=== PATIENT | male | born 1935 | race Caucasian/White ===

== ENCOUNTER 2016-12-19 19:54 | Inpatient (IN) | payer MEDICARE, MEDICAID ==
[~2016-12-19] VITALS: Ht 177.8 cm; Wt 58.0 kg
[2016-12-19 20:11] LABS: GLUCOSE,POINT OF CARE 133 MG/DL (70-110)
[2016-12-19 21:29] LABS: BASOPHILS % (AUTO) 0.5 % (0.0-2.0); EOSINOPHILS % (AUTO) 5.9 % (1.0-6.0); HEMOGLOBIN 7.5 g/dL (13.5-17.5); LYMPHOCYTES # (AUTO) 2.5 K/uL (1.0-4.8); LYMPHOCYTES % (AUTO) 34.4 % (22.0-44.0); MEAN CORPUSCULAR HEMOGLOBIN 30.5 pg (26.0-34.0); MEAN CORPUSCULAR HGB CONC 32.4 G/dL (31.0-37.0); MEAN CORPUSCULAR VOLUME 94 fL (80-100); MONOCYTES # (AUTO) 0.8 K/uL (0.1-1.0); MONOCYTES % (AUTO) 11.1 % (2.0-9.0); NEUTROPHILS # (AUTO) 3.4 K/uL (1.8-7.7); NEUTROPHILS % (AUTO) 48.1 % (40.0-70.0); PLATELET COUNT (AUTO) 301 K/uL (150-450); RED BLOOD CELL COUNT(AUTO) 2.45 MIL/uL (4.50-5.90); RED CELL DISTRIBUTION WIDTH 21.4 % (11.5-14.5); WHITE BLOOD COUNT (AUTO) 7.1 K/uL (4.5-11.0)
[2016-12-19 21:37] LABS: ANION GAP 3 mmol/L (8-16); CALCIUM, TOTAL 8.3 mg/dL (8.8-10.5); CARBON DIOXIDE 31 mmol/L (22-29); CHLORIDE 100 mmol/L (98-107); CREATININE 0.94 mg/dL (0.60-1.30); GLOMERULAR FILTR. RATE CALC > 60 mL/min (>60); POTASSIUM 4.4 mmol/L (3.5-5.1); SODIUM SERUM 134 mmol/L (136-145); UREA NITROGEN, BLOOD 27 mg/dL (7-18)
[2016-12-19 21:43] LABS: ALANINE AMINOTRANSFERASE 14 U/L (12-78); ALBUMIN 1.9 g/dL (3.4-5.0); ASPARTATE AMINOTRANSFERASE 18 U/L (15-37); BILIRUBIN,TOTAL 0.2 mg/dL (0.1-1.0); TOTAL PROTEIN, SERUM 6.8 g/dL (6.4-8.2)
[2016-12-19] MEDS ORDERED: HYDR-3965 GT (21:55)
[2016-12-19] MEDS ORDERED: ACET-2247 GT ×2 (21:55)
[2016-12-19] MEDS ORDERED: LACT1CAP62 GT (21:55)
[2016-12-19] MEDS ORDERED: GABA-531 GT (21:55)
[2016-12-19] MEDS ORDERED: SIMV-259 GT (21:55)
[2016-12-19] MEDS ORDERED: COLL30OI TP (21:55)
[2016-12-19] MEDS ORDERED: FOLI1 GT (21:55)
[2016-12-19] MEDS ORDERED: ASPI81 PO (21:55)
[2016-12-19] MEDS ORDERED: INSNOV SQ (21:55)
[2016-12-19] MEDS ORDERED: FURO20 GT (21:55)
[2016-12-19] MEDS ORDERED: NAPH1PAC2 GT (21:55)
[2016-12-19] MEDS ORDERED: ATEN25 GT (21:55)
[2016-12-19] MEDS ORDERED: PYRI100T2 GT (21:55)
[2016-12-19] MEDS ORDERED: LISI-662 GT (21:55)
[2016-12-19] MEDS ORDERED: FERR-6 GT (21:55)
[2016-12-19 22:32] LABS: RBC MORPHOLOGY COMMENT ABNORMAL RBC MORPH
[2016-12-19 22:40] LABS: ADD UA MICROSCOPIC NO; APPEARANCE,URINE CLEAR (CLEAR); GLUCOSE, URINE (UA) NEGATIVE (NEGATIVE); KETONES,URINE NEGATIVE (NEGATIVE); LEUKOCYTE ESTERASE ,URINE NEGATIVE (NEGATIVE); OCCULT BLOOD,URINE NEGATIVE (NEGATIVE); PH,URINE 7.5 (5.0-8.0); PROTEIN,URINE POS 1+ (NEGATIVE)
[2016-12-20] VITALS (25 sets, daily range): BP systolic 115–162; BP diastolic 47–76
[2016-12-20] MEDS ORDERED: SODIUM CHLORIDE 0.9% 250 ML IV ONE (02:22)
[2016-12-20] MEDS ORDERED: PYRIDOXINE HCL 50 MG TABLET GT SCH (05:45)
[2016-12-20] MEDS ORDERED: 0.9% SODIUM CHLORIDE 10 ML SYRINGE IVP PRN (06:00)
[2016-12-20] MEDS ORDERED: ONDANSETRON HCL 4 MG/2 ML VIAL IVP PRN (06:00)
[2016-12-20] MEDS ORDERED: ACETAMINOPHEN 325 MG TABLET GT SCH (09:00)
[2016-12-20] MEDS ORDERED: DOCUSATE SODIUM 100 MG/10 ML LIQUID UDCUP GT SCH (09:00)
[2016-12-20] MEDS: LACTOBACILLUS ACIDOPHILUS/BULGARICUS GRANULES PACKET GT SCH ×3 (10:32→20:31)
[2016-12-20] MEDS: FOLIC ACID 1 MG TABLET GT SCH (10:33)
[2016-12-20] MEDS: ATENOLOL 25 MG TABLET GT SCH ×2 (10:33→20:31)
[2016-12-20] MEDS: ASPIRIN 81 MG CHEWABLE TABLET GT SCH (10:33)
[2016-12-20] MEDS: LISINOPRIL 20 MG TABLET GT SCH (10:33)
[2016-12-20] MEDS: PANTOPRAZOLE SODIUM 40 MG/VIAL IVP SCH (10:33)
[2016-12-20] MEDS: GABAPENTIN 300 MG CAPSULE GT SCH (10:33)
[2016-12-20] MEDS: POTASSIUM PHOS/SODIUM PHOS MIXTURE 1 POWDER PACKET GT SCH ×2 (10:34→20:31)
[2016-12-20] MEDS: FERROUS SULFATE 300 MG/5 ML LIQUID UDCUP GT SCH ×2 (10:34→20:31)
[2016-12-20] MEDS: DOCUSATE SODIUM 100 MG CAPSULE GT SCH ×2 (10:34→20:31)
[2016-12-20] MEDS ORDERED: INFLUENZA VIRUS VACCINE QVS 2016-17 (3YR+)/PF 60 MCG/0.5 ML SYRINGE IM ONE (12:15)
[2016-12-20] MEDS ORDERED: SODIUM CHLORIDE 0.9% 500 ML IV ONE (13:36)
[2016-12-20 19:02] LABS: HEMATOCRIT 29.7 % (41-53); HEMOGLOBIN 9.7 g/dL (13.5-17.5)
[2016-12-20] MEDS ORDERED: SIMVASTATIN 10 MG TABLET GT SCH (21:00)
[2016-12-21 03:30] VITALS: BP 122/64
[2016-12-21 07:11] LABS: ANION GAP 8 mmol/L (8-16); CALCIUM, TOTAL 8.4 mg/dL (8.8-10.5); CARBON DIOXIDE 26 mmol/L (22-29); CHLORIDE 104 mmol/L (98-107); CREATININE 0.96 mg/dL (0.60-1.30); GLOMERULAR FILTR. RATE CALC > 60 mL/min (>60); POTASSIUM 4.2 mmol/L (3.5-5.1); SODIUM SERUM 138 mmol/L (136-145); UREA NITROGEN, BLOOD 25 mg/dL (7-18)
[2016-12-21 07:29] VITALS: BP 135/66
[2016-12-21 07:40] LABS: BASOPHILS # (AUTO) 0.04 K/uL (0.00-0.20); BASOPHILS % (AUTO) 0.7 % (0.0-2.0); EOSINOPHILS # (AUTO) 0.32 K/uL (0.00-0.70); EOSINOPHILS % (AUTO) 5.25 % (1.0-6.0); HEMATOCRIT 28.7 % (41-53); HEMOGLOBIN 9.8 g/dL (13.5-17.5); LYMPHOCYTES # (AUTO) 3.1 K/uL (1.0-4.8); LYMPHOCYTES % (AUTO) 50.3 % (22.0-44.0); MEAN CORPUSCULAR HEMOGLOBIN 30.6 pg (26.0-34.0); MEAN CORPUSCULAR VOLUME 90 fL (80-100); MONOCYTES # (AUTO) 0.8 K/uL (0.1-1.0); MONOCYTES % (AUTO) 12.4 % (2.0-9.0); NEUTROPHILS # (AUTO) 1.9 K/uL (1.8-7.7); NEUTROPHILS % (AUTO) 31.3 % (40.0-70.0); PLATELET COUNT (AUTO) 227 K/uL (150-450); RED CELL DISTRIBUTION WIDTH 21.5 % (11.5-14.5); WHITE BLOOD COUNT (AUTO) 6.1 K/uL (4.5-11.0)
[2016-12-21 07:42] LABS: RBC MORPHOLOGY COMMENT ABNORMAL RBC MORPH
[2016-12-21] MEDS: PANTOPRAZOLE SODIUM 40 MG/VIAL IVP SCH (08:06)
[2016-12-21] MEDS: POTASSIUM PHOS/SODIUM PHOS MIXTURE 1 POWDER PACKET GT SCH (08:07)
[2016-12-21] MEDS: FOLIC ACID 1 MG TABLET GT SCH (08:07)
[2016-12-21] MEDS: LACTOBACILLUS ACIDOPHILUS/BULGARICUS GRANULES PACKET GT SCH ×2 (08:07→16:24)
[2016-12-21] MEDS: FERROUS SULFATE 300 MG/5 ML LIQUID UDCUP GT SCH (08:07)
[2016-12-21] MEDS: ATENOLOL 25 MG TABLET GT SCH (08:07)
[2016-12-21] MEDS: ASPIRIN 81 MG CHEWABLE TABLET GT SCH (08:07)
[2016-12-21] MEDS: LISINOPRIL 20 MG TABLET GT SCH (08:07)
[2016-12-21] MEDS: GABAPENTIN 300 MG CAPSULE GT SCH (08:07)
[2016-12-21] MEDS: DOCUSATE SODIUM 100 MG CAPSULE GT SCH (08:07)
[2016-12-21] MEDS ORDERED: MULTIVITAMINS WITH MINERALS, THERAPEUTIC 15 ML UDCUP GT SCH (09:00)
[2016-12-21 11:10] VITALS: BP 146/74
[2016-12-21 16:02] VITALS: BP 159/55
[2016-12-22] MEDS ORDERED: ACETAMINOPHEN 650 MG/20.3 ML SOLUTION UDCUP GT PRN (08:00)
== END 2016-12-21 19:20 | DRG 811 ==
LOC: EMS 19:59 → 6N 12-20 01:06
PROVIDERS: ADMIT Internal Medicine; ATTEND Internal Medicine
PROC: 30233N1 Transfusion of Nonautologous Red Blood Cells into Peripheral Vein, Percutaneous Approach (ICD-10-PCS; principal; 2016-12-20)
PROC: 3E0234Z Introduction of Serum, Toxoid and Vaccine into Muscle, Percutaneous Approach (ICD-10-PCS; 2016-12-20)
DX: D64.9 Anemia, unspecified (principal); E43 Unspecified severe protein-calorie malnutrition; L89.153 Pressure ulcer of sacral region, stage 3; Z68.1 Body mass index [BMI] 19.9 or less, adult; E11.9 Type 2 diabetes mellitus without complications; E86.0 Dehydration; I10 Essential (primary) hypertension; E78.00 Pure hypercholesterolemia, unspecified; F03.90 Unspecified dementia, unspecified severity, without behavioral disturbance, psychotic disturbance, mood disturbance, and anxiety; I25.10 Atherosclerotic heart disease of native coronary artery without angina pectoris; H54.41 Blindness, right eye, normal vision left eye; Z93.1 Gastrostomy status; Z95.1 Presence of aortocoronary bypass graft; Z98.890 Other specified postprocedural states; Z79.899 Other long term (current) drug therapy; Z23 Encounter for immunization
CPT/HCPCS: 82962; 85014; 85018; 86850; 86900; 86901; 86920; 87081; 90471; 93005; 99285; C9113; J7040; J7050; P9016

== ENCOUNTER 2017-02-24 13:24 | Inpatient (IN) | payer MEDICARE, MEDICAID ==
[~2017-02-24] VITALS: Ht 167.6 cm; Wt 68.9 kg
[~2017-02-24 13:24] MED LIST: ACET-2247 GT; ASPI81 PO; ATEN25 GT; COLL30OI TP; FERR-6 GT; FOLI1 GT; FURO20 GT; GABA-531 GT; HYDR-3965 GT; INSNOV SQ; LACT1CAP62 GT; LISI-662 GT; NAPH1PAC2 GT; PYRI100T2 GT; SIMV-259 GT
[2017-02-24 14:45] LABS: HEMOGLOBIN 10.6 g/dL (13.5-17.5); MEAN CORPUSCULAR HEMOGLOBIN 29.4 pg (26.0-34.0); MEAN CORPUSCULAR HGB CONC 32.2 G/dL (31.0-37.0); MEAN CORPUSCULAR VOLUME 91 fL (80-100); PLATELET COUNT (AUTO) 259 K/uL (150-450); RED BLOOD CELL COUNT(AUTO) 3.61 MIL/uL (4.50-5.90); RED CELL DISTRIBUTION WIDTH 16.1 % (11.5-14.5); WHITE BLOOD COUNT (AUTO) 15.6 K/uL (4.5-11.0)
[2017-02-24] MEDS ORDERED: SODIUM CHLORIDE 0.9% 1,000 ML IV ONE (14:45)
[2017-02-24 15:07] LABS: B-TYPE NATRIURETIC PEPTIDE 1430 pg/mL (0-100)
[2017-02-24 15:14] LABS: BAND NEUTROPHILS % (MANUAL) 12 % (1-5); EOSINOPHILS % (MANUAL) 2 % (1-6); LYMPHOCYTES % (MANUAL) 4 % (22-44); TOTAL CELLS COUNTED 100
[2017-02-24 15:16] LABS: ALANINE AMINOTRANSFERASE 17 U/L (12-78); ANION GAP 10 mmol/L (8-16); ASPARTATE AMINOTRANSFERASE 18 U/L (15-37); BILIRUBIN,TOTAL 0.5 mg/dL (0.1-1.0); CALCIUM, TOTAL 8.9 mg/dL (8.8-10.5); CARBON DIOXIDE 26 mmol/L (22-29); CHLORIDE 91 mmol/L (98-107); CREATININE 3.62 mg/dL (0.60-1.30); GLOMERULAR FILTR. RATE CALC 16 mL/min (>60); SODIUM SERUM 127 mmol/L (136-145); TOTAL PROTEIN, SERUM 8.4 g/dL (6.4-8.2); UREA NITROGEN, BLOOD 94 mg/dL (7-18)
[2017-02-24 15:19] LABS: LACTIC ACID 3.5 mmol/L (0.4-2.0); POTASSIUM 7.2 mmol/L (3.5-5.1)
[2017-02-24] MEDS ORDERED: CALCIUM GLUCONATE 100 MG/ML 10 ML IVP ONE (15:45)
[2017-02-24] MEDS ORDERED: INSULIN REGULAR, HUMAN 100 UNITS/ML IVP ONE (15:45)
[2017-02-24] MEDS ORDERED: DEXTROSE 50%-WATER 25 GM/50 ML SYRINGE IVP ONE (15:45)
[2017-02-24] MEDS ORDERED: AZITHROMYCIN 500 MG/NS 250 ML IV ONE (15:45)
[2017-02-24] MEDS ORDERED: CefTRIAXone 1 GM/DEXTROSE 50 ML IV ONE (15:45)
[2017-02-24 16:41] LABS: REFLEX LACTIC ACID? YES YES
[2017-02-24] MEDS ORDERED: PANTOPRAZOLE SODIUM 80 MG in SODIUM CHLORIDE 0.9% 500 ML IV SCH (18:00)
[2017-02-24] MEDS ORDERED: PANTOPRAZOLE SODIUM 80 MG in SODIUM CHLORIDE 0.9% 50 ML IV ONE (18:00)
[2017-02-24 20:09] VITALS: BP 109/49
[2017-02-24] MEDS ORDERED: ACETAMINOPHEN 650 MG/20.3 ML SOLUTION UDCUP GT PRN (23:15)
[2017-02-24] MEDS ORDERED: HYDROCODONE/ACETAMINOPHEN 5-325 MG TABLET GT PRN ×2 (23:15→23:55)
[2017-02-24 23:44] VITALS: BP 139/57
[2017-02-24] MEDS ORDERED: SODIUM POLYSTYRENE SULFONATE 15 GM/60 ML SUSPENSION BOTTLE PEG ONE (23:45)
[2017-02-24] MEDS ORDERED: MORPHINE SULFATE 2 MG/ML SYRINGE IVP PRN (23:45)
[2017-02-24] MEDS ORDERED: DEXTROSE 50%-WATER 25 GM/50 ML SYRINGE IVP PRN (23:45)
[2017-02-24] MEDS ORDERED: BISACODYL 10 MG RECTAL RECTAL SUPPOSITORY PR PRN (23:45)
[2017-02-24] MEDS ORDERED: ALBUTEROL SULFATE 2.5 MG/0.5 ML NEB SOLUTION NEB PRN (23:45)
[2017-02-24] MEDS ORDERED: IPRATROPIUM BROMIDE 0.5 MG/2.5 ML NEB SOLUTION NEB PRN (23:45)
[2017-02-24] MEDS ORDERED: CefTRIAXone 1 GM/DEXTROSE 50 ML IV SCH (23:45)
[2017-02-24] MEDS ORDERED: MAGNESIUM HYDROXIDE SUSPENSION 30 ML UDCUP PO PRN (23:45)
[2017-02-24] MEDS ORDERED: ONDANSETRON HCL 4 MG/2 ML VIAL IVP PRN (23:45)
[2017-02-24] MEDS ORDERED: HYDROCODONE/ACETAMINOPHEN 5-325 MG TABLET PO PRN (23:45)
[2017-02-24] MEDS ORDERED: ACETAMINOPHEN 325 MG TABLET PO PRN (23:45)
[2017-02-24] MEDS ORDERED: ZOLPIDEM TARTRATE 5 MG TABLET PO PRN (23:45)
[2017-02-24] MEDS ORDERED: ZOLPIDEM TARTRATE 5 MG TABLET GT PRN (23:55)
[2017-02-25] MEDS ORDERED: MAGNESIUM HYDROXIDE SUSPENSION 30 ML UDCUP GT PRN
[2017-02-25 00:16] LABS: HEMATOCRIT 27.1 % (41-53); HEMOGLOBIN 8.7 g/dL (13.5-17.5); MEAN CORPUSCULAR HEMOGLOBIN 29.1 pg (26.0-34.0); MEAN CORPUSCULAR HGB CONC 32.1 G/dL (31.0-37.0); MEAN CORPUSCULAR VOLUME 91 fL (80-100); PLATELET COUNT (AUTO) 288 K/uL (150-450); RED BLOOD CELL COUNT(AUTO) 2.99 MIL/uL (4.50-5.90); RED CELL DISTRIBUTION WIDTH 16.2 % (11.5-14.5); WHITE BLOOD COUNT (AUTO) 16.7 K/uL (4.5-11.0)
[2017-02-25 00:28] LABS: ALBUMIN 1.9 g/dL (3.4-5.0); BILIRUBIN,TOTAL 0.3 mg/dL (0.1-1.0); CALCIUM, TOTAL 8.9 mg/dL (8.8-10.5); CREATININE 3.93 mg/dL (0.60-1.30)
[2017-02-25 00:48] LABS: BAND NEUTROPHILS % (MANUAL) 53 % (1-5); LYMPHOCYTES % (MANUAL) 6 % (22-44); TOTAL CELLS COUNTED 100
[2017-02-25 04:37] VITALS: BP 122/55
[2017-02-25 06:53] LABS: EOSINOPHILS % (AUTO) 0.1 % (1.0-6.0); HEMATOCRIT 23.6 % (41-53); HEMOGLOBIN 7.7 g/dL (13.5-17.5); LYMPHOCYTES # (AUTO) 0.8 K/uL (1.0-4.8); LYMPHOCYTES % (AUTO) 5.4 % (22.0-44.0); MEAN CORPUSCULAR HEMOGLOBIN 29.8 pg (26.0-34.0); MEAN CORPUSCULAR HGB CONC 32.7 G/dL (31.0-37.0); MEAN CORPUSCULAR VOLUME 91 fL (80-100); MONOCYTES # (AUTO) 0.5 K/uL (0.1-1.0); MONOCYTES % (AUTO) 3.3 % (2.0-9.0); NEUTROPHILS # (AUTO) 12.8 K/uL (1.8-7.7); PLATELET COUNT (AUTO) 285 K/uL (150-450); RED CELL DISTRIBUTION WIDTH 16.1 % (11.5-14.5); WHITE BLOOD COUNT (AUTO) 14.1 K/uL (4.5-11.0)
[2017-02-25 07:08] LABS: GLUCOSE COMMENT 1 Received Meds; GLUCOSE,POINT OF CARE 177 MG/DL (70-110)
[2017-02-25 07:10] LABS: NEUTROPHILS % (AUTO) 91.2 % (40.0-70.0)
[2017-02-25 07:13] VITALS: BP 110/64
[2017-02-25 07:25] LABS: ALBUMIN 1.7 g/dL (3.4-5.0); BILIRUBIN,TOTAL 0.3 mg/dL (0.1-1.0); CALCIUM, TOTAL 8.7 mg/dL (8.8-10.5); CREATININE 4.53 mg/dL (0.60-1.30); POTASSIUM 5.8 mmol/L (3.5-5.1); TOTAL PROTEIN, SERUM 7.4 g/dL (6.4-8.2)
[2017-02-25] MEDS: PANTOPRAZOLE SODIUM 40 MG/VIAL IVP SCH (08:02)
[2017-02-25] MEDS ORDERED: FUROSEMIDE 20 MG TABLET GT SCH (09:00)
[2017-02-25] MEDS: DOCUSATE SODIUM 100 MG CAPSULE GT SCH ×2 (09:00→21:16)
[2017-02-25] MEDS ORDERED: LISINOPRIL 20 MG TABLET GT SCH (09:00)
[2017-02-25] MEDS: FERROUS SULFATE 300 MG/5 ML LIQUID UDCUP GT SCH ×2 (09:00→21:16)
[2017-02-25] MEDS ORDERED: POTASSIUM PHOS/SODIUM PHOS MIXTURE 1 POWDER PACKET GT SCH (09:00)
[2017-02-25] MEDS: GABAPENTIN 300 MG CAPSULE GT SCH (10:01)
[2017-02-25] MEDS: PYRIDOXINE HCL 50 MG TABLET GT SCH (10:01)
[2017-02-25] MEDS: LACTOBACILLUS ACIDOPHILUS/BULGARICUS TABLET GT SCH ×3 (10:01→21:16)
[2017-02-25] MEDS: FOLIC ACID 1 MG TABLET GT SCH (10:01)
[2017-02-25] MEDS: ATENOLOL 25 MG TABLET GT SCH ×2 (10:02→21:16)
[2017-02-25] MEDS: SODIUM CHLORIDE 0.45% 1,000 ML IV SCH (10:04)
[2017-02-25 11:16] VITALS: BP 120/54
[2017-02-25] MEDS: INSULIN REGULAR, HUMAN 100 UNITS/ML SQ PRN (12:09)
[2017-02-25] MEDS: CefTRIAXone 1 GM/DEXTROSE 50 ML IV SCH (14:30)
[2017-02-25 15:26] LABS: HEMATOCRIT 24.4 % (41-53); HEMOGLOBIN 7.9 g/dL (13.5-17.5); MEAN CORPUSCULAR HEMOGLOBIN 29.5 pg (26.0-34.0); MEAN CORPUSCULAR HGB CONC 32.2 G/dL (31.0-37.0); MEAN CORPUSCULAR VOLUME 91 fL (80-100); PLATELET COUNT (AUTO) 296 K/uL (150-450); RED BLOOD CELL COUNT(AUTO) 2.66 MIL/uL (4.50-5.90); RED CELL DISTRIBUTION WIDTH 16.2 % (11.5-14.5); WHITE BLOOD COUNT (AUTO) 12.1 K/uL (4.5-11.0)
[2017-02-25 15:55] LABS: BAND NEUTROPHILS % (MANUAL) 37 % (1-5); LYMPHOCYTES % (MANUAL) 14 % (22-44); TOTAL CELLS COUNTED 100
[2017-02-25 16:00] LABS: ALBUMIN 1.6 g/dL (3.4-5.0); BILIRUBIN,TOTAL 0.3 mg/dL (0.1-1.0); CALCIUM, TOTAL 8.5 mg/dL (8.8-10.5); CREATININE 4.77 mg/dL (0.60-1.30); MAGNESIUM 2.3 mg/dL (1.80-2.40); PHOSPHORUS 5.9 mg/dL (2.5-4.9); POTASSIUM 4.4 mmol/L (3.5-5.1); TOTAL PROTEIN, SERUM 7.4 g/dL (6.4-8.2)
[2017-02-25 16:22] VITALS: BP 116/54
[2017-02-25 17:23] LABS: GLUCOSE COMMENT 1 Received Meds; GLUCOSE,POINT OF CARE 200 MG/DL (70-110)
[2017-02-25 17:23] LABS: GLUCOSE,POINT OF CARE 150 MG/DL (70-110)
[2017-02-25 18:12] LABS: GLUCOSE,POINT OF CARE 133 MG/DL (70-110)
[2017-02-25 20:04] VITALS: BP 133/64
[2017-02-25] MEDS: SIMVASTATIN 10 MG TABLET GT SCH (21:16)
[2017-02-25 23:49] VITALS: BP 126/62
[2017-02-26] MEDS: SODIUM CHLORIDE 0.45% 1,000 ML IV SCH ×2 (01:05→18:30)
[2017-02-26] MEDS ORDERED: PROPOFOL 1% 20 ML VIAL IVP ONE (04:11)
[2017-02-26 04:14] VITALS: BP 132/60
[2017-02-26 07:35] LABS: EOSINOPHILS % (AUTO) 0 % (1.0-6.0); HEMATOCRIT 23.5 % (41-53); HEMOGLOBIN 7.7 g/dL (13.5-17.5); LYMPHOCYTES # (AUTO) 0.9 K/uL (1.0-4.8); LYMPHOCYTES % (AUTO) 8.3 % (22.0-44.0); MEAN CORPUSCULAR HEMOGLOBIN 29.8 pg (26.0-34.0); MEAN CORPUSCULAR HGB CONC 32.9 G/dL (31.0-37.0); MEAN CORPUSCULAR VOLUME 91 fL (80-100); MONOCYTES # (AUTO) 0.2 K/uL (0.1-1.0); MONOCYTES % (AUTO) 1.4 % (2.0-9.0); PLATELET COUNT (AUTO) 286 K/uL (150-450); RED BLOOD CELL COUNT(AUTO) 2.59 MIL/uL (4.50-5.90); RED CELL DISTRIBUTION WIDTH 16.5 % (11.5-14.5); WHITE BLOOD COUNT (AUTO) 11.1 K/uL (4.5-11.0)
[2017-02-26 07:38] VITALS: BP 115/54
[2017-02-26 07:59] LABS: ALBUMIN 1.5 g/dL (3.4-5.0); BILIRUBIN,TOTAL 0.3 mg/dL (0.1-1.0); CALCIUM, TOTAL 8.4 mg/dL (8.8-10.5); CREATININE 4.37 mg/dL (0.60-1.30); MAGNESIUM 2.3 mg/dL (1.80-2.40); NEUTROPHILS % (AUTO) 90.3 % (40.0-70.0); PHOSPHORUS 5.8 mg/dL (2.5-4.9); POTASSIUM 3.6 mmol/L (3.5-5.1); TOTAL PROTEIN, SERUM 6.8 g/dL (6.4-8.2)
[2017-02-26] MEDS: FERROUS SULFATE 300 MG/5 ML LIQUID UDCUP GT SCH ×2 (09:00→21:40)
[2017-02-26] MEDS: LACTOBACILLUS ACIDOPHILUS/BULGARICUS TABLET GT SCH ×3 (09:00→21:40)
[2017-02-26] MEDS: ATENOLOL 25 MG TABLET GT SCH ×2 (09:00→21:40)
[2017-02-26] MEDS: DOCUSATE SODIUM 100 MG CAPSULE GT SCH ×2 (09:00→21:00)
[2017-02-26] MEDS: PYRIDOXINE HCL 50 MG TABLET GT SCH (09:00)
[2017-02-26] MEDS: FOLIC ACID 1 MG TABLET GT SCH (09:00)
[2017-02-26] MEDS: GABAPENTIN 300 MG CAPSULE GT SCH (09:00)
[2017-02-26 11:25] VITALS: BP 133/70
[2017-02-26] MEDS ORDERED: SODIUM CHLORIDE 0.9% 1,000 ML IV ONE ×2 (13:15→13:27)
[2017-02-26 16:46] VITALS: BP 125/60
[2017-02-26] MEDS: PANTOPRAZOLE SODIUM 40 MG/VIAL IVP SCH (18:01)
[2017-02-26] MEDS: EPOETIN ALFA 10,000 UNITS/ML VIAL SQ SCH (18:02)
[2017-02-26] MEDS: CefTRIAXone 1 GM/DEXTROSE 50 ML IV SCH (18:03)
[2017-02-26 19:11] VITALS: BP 131/57
[2017-02-26] MEDS: SOD FERRIC GLUC COMPLX/SUCROSE 125 MG in SODIUM CHLORIDE 0.9% 100 ML IV SCH (19:13)
[2017-02-26 21:10] LABS: APPEARANCE,URINE CLOUDY (CLEAR); GLUCOSE, URINE (UA) NEGATIVE (NEGATIVE); KETONES,URINE TRACE mg/dL (NEGATIVE); LEUKOCYTE ESTERASE ,URINE LARGE (NEGATIVE); OCCULT BLOOD,URINE LARGE (NEGATIVE); PROTEIN,URINE SEE CONFIRM (NEGATIVE)
[2017-02-26 21:32] LABS: SULFOSALICYLIC ACID,URINE 3+ (Negative)
[2017-02-26 21:33] LABS: SQUAMOUS EPITHELIAL CELL,UR Rare /LPF (None Seen)
[2017-02-26 21:34] LABS: RBC,URINE >100 /HPF (0-2)
[2017-02-26] MEDS: SIMVASTATIN 10 MG TABLET GT SCH (21:40)
[2017-02-26] MEDS: MUPIROCIN CALCIUM 2% 22 GM OINTMENT NASAL SCH (21:40)
[2017-02-27] VITALS (7 sets, daily range): BP systolic 124–161; BP diastolic 60–88
[2017-02-27 00:22] LABS: GLUCOSE,POINT OF CARE 91 MG/DL (70-110)
[2017-02-27] MEDS: SODIUM CHLORIDE 0.45% 1,000 ML IV SCH ×2 (01:49→16:42)
[2017-02-27 04:27] LABS: BASOPHILS % (AUTO) 0.1 % (0.0-2.0); EOSINOPHILS % (AUTO) 0.1 % (1.0-6.0); HEMATOCRIT 26.7 % (41-53); HEMOGLOBIN 8.7 g/dL (13.5-17.5); LYMPHOCYTES # (AUTO) 1.2 K/uL (1.0-4.8); LYMPHOCYTES % (AUTO) 9.7 % (22.0-44.0); MEAN CORPUSCULAR HEMOGLOBIN 28.9 pg (26.0-34.0); MEAN CORPUSCULAR HGB CONC 32.4 G/dL (31.0-37.0); MEAN CORPUSCULAR VOLUME 89 fL (80-100); MONOCYTES # (AUTO) 0.6 K/uL (0.1-1.0); MONOCYTES % (AUTO) 4.8 % (2.0-9.0); NEUTROPHILS # (AUTO) 10.5 K/uL (1.8-7.7); PLATELET COUNT (AUTO) 286 K/uL (150-450); RED CELL DISTRIBUTION WIDTH 16.6 % (11.5-14.5); WHITE BLOOD COUNT (AUTO) 12.3 K/uL (4.5-11.0)
[2017-02-27 04:29] LABS: NEUTROPHILS % (AUTO) 85.3 % (40.0-70.0)
[2017-02-27 04:39] LABS: ALBUMIN 1.5 g/dL (3.4-5.0); BILIRUBIN,TOTAL 0.3 mg/dL (0.1-1.0); CALCIUM, TOTAL 8.2 mg/dL (8.8-10.5); CREATININE 3.87 mg/dL (0.60-1.30); MAGNESIUM 2.2 mg/dL (1.80-2.40); PHOSPHORUS 4.6 mg/dL (2.5-4.9); POTASSIUM 3.3 mmol/L (3.5-5.1); TOTAL PROTEIN, SERUM 6.7 g/dL (6.4-8.2)
[2017-02-27 06:57] LABS: GLUCOSE,POINT OF CARE 104 MG/DL (70-110)
[2017-02-27] MEDS ORDERED: POTASSIUM CHLORIDE 10 MEQ ER TABLET PO ONE (07:45)
[2017-02-27] MEDS: DOCUSATE SODIUM 100 MG CAPSULE GT SCH ×2 (09:00→21:00)
[2017-02-27] MEDS: PANTOPRAZOLE SODIUM 40 MG/VIAL IVP SCH (10:01)
[2017-02-27] MEDS: FOLIC ACID 1 MG TABLET GT SCH (10:02)
[2017-02-27] MEDS: PYRIDOXINE HCL 50 MG TABLET GT SCH (10:02)
[2017-02-27] MEDS: GABAPENTIN 300 MG CAPSULE GT SCH (10:02)
[2017-02-27] MEDS: ATENOLOL 25 MG TABLET GT SCH (10:02)
[2017-02-27] MEDS: LACTOBACILLUS ACIDOPHILUS/BULGARICUS TABLET GT SCH ×2 (10:03→16:41)
[2017-02-27] MEDS: MUPIROCIN CALCIUM 2% 22 GM OINTMENT NASAL SCH (10:03)
[2017-02-27] MEDS: FERROUS SULFATE 300 MG/5 ML LIQUID UDCUP GT SCH (10:04)
[2017-02-27] MEDS: CefTRIAXone 1 GM/DEXTROSE 50 ML IV SCH (16:41)
[2017-02-27] MEDS: SOD FERRIC GLUC COMPLX/SUCROSE 125 MG in SODIUM CHLORIDE 0.9% 100 ML IV SCH (17:24)
[2017-02-28] VITALS (7 sets, daily range): BP systolic 133–164; BP diastolic 59–69
[2017-02-28] MEDS: FERROUS SULFATE 300 MG/5 ML LIQUID UDCUP GT SCH ×3 (00:13→20:16)
[2017-02-28] MEDS: SIMVASTATIN 10 MG TABLET GT SCH ×2 (00:13→20:16)
[2017-02-28] MEDS: ATENOLOL 25 MG TABLET GT SCH ×3 (00:13→20:16)
[2017-02-28] MEDS: LACTOBACILLUS ACIDOPHILUS/BULGARICUS TABLET GT SCH ×4 (00:13→20:16)
[2017-02-28] MEDS: MUPIROCIN CALCIUM 2% 22 GM OINTMENT NASAL SCH ×3 (00:13→20:17)
[2017-02-28] MEDS: SODIUM CHLORIDE 0.45% 1,000 ML IV SCH ×2 (04:38→11:46)
[2017-02-28 06:07] LABS: GLUCOSE,POINT OF CARE 101 MG/DL (70-110)
[2017-02-28 06:07] LABS: GLUCOSE,POINT OF CARE 116 MG/DL (70-110)
[2017-02-28 06:45] LABS: BASOPHILS # (AUTO) 0.01 K/uL (0.00-0.20); BASOPHILS % (AUTO) 0.1 % (0.0-2.0); EOSINOPHILS % (AUTO) 0.85 % (1.0-6.0); HEMATOCRIT 27.9 % (41-53); HEMOGLOBIN 9.1 g/dL (13.5-17.5); LYMPHOCYTES # (AUTO) 1.3 K/uL (1.0-4.8); LYMPHOCYTES % (AUTO) 11.8 % (22.0-44.0); MEAN CORPUSCULAR HEMOGLOBIN 29.7 pg (26.0-34.0); MEAN CORPUSCULAR HGB CONC 32.7 G/dL (31.0-37.0); MEAN CORPUSCULAR VOLUME 91 fL (80-100); MONOCYTES # (AUTO) 0.8 K/uL (0.1-1.0); MONOCYTES % (AUTO) 7.4 % (2.0-9.0); NEUTROPHILS % (AUTO) 79.8 % (40.0-70.0); PLATELET COUNT (AUTO) 292 K/uL (150-450); RED BLOOD CELL COUNT(AUTO) 3.08 MIL/uL (4.50-5.90); RED CELL DISTRIBUTION WIDTH 16.8 % (11.5-14.5); WHITE BLOOD COUNT (AUTO) 11.2 K/uL (4.5-11.0)
[2017-02-28 07:47] LABS: ALBUMIN 1.5 g/dL (3.4-5.0); BILIRUBIN,TOTAL 0.4 mg/dL (0.1-1.0); CALCIUM, TOTAL 8.7 mg/dL (8.8-10.5); CREATININE 3.02 mg/dL (0.60-1.30); MAGNESIUM 2.1 mg/dL (1.80-2.40); PHOSPHORUS 3.9 mg/dL (2.5-4.9); POTASSIUM 3.2 mmol/L (3.5-5.1); TOTAL PROTEIN, SERUM 6.9 g/dL (6.4-8.2)
[2017-02-28] MEDS: DOCUSATE SODIUM 100 MG CAPSULE GT SCH ×2 (09:00→20:16)
[2017-02-28] MEDS: POTASSIUM CHL 10 MEQ/WATER 50 ML IV SCH ×2 (10:20→11:35)
[2017-02-28] MEDS: PANTOPRAZOLE SODIUM 40 MG/VIAL IVP SCH (10:31)
[2017-02-28] MEDS: EPOETIN ALFA 10,000 UNITS/ML VIAL SQ SCH (10:32)
[2017-02-28] MEDS: PYRIDOXINE HCL 50 MG TABLET GT SCH (10:33)
[2017-02-28] MEDS: GABAPENTIN 300 MG CAPSULE GT SCH (10:34)
[2017-02-28] MEDS: FOLIC ACID 1 MG TABLET GT SCH (10:34)
[2017-02-28] MEDS ORDERED: POTASSIUM CHL 10 MEQ/WATER 50 ML IV PRN (11:15)
[2017-02-28] MEDS ORDERED: POTASSIUM CHLORIDE 20 MEQ ER TABLET PO PRN (11:15)
[2017-02-28] MEDS: SOD FERRIC GLUC COMPLX/SUCROSE 125 MG in SODIUM CHLORIDE 0.9% 100 ML IV SCH (14:13)
[2017-02-28] MEDS: CefTRIAXone 1 GM/DEXTROSE 50 ML IV SCH (14:54)
[2017-02-28] MEDS: INSULIN REGULAR, HUMAN 100 UNITS/ML SQ PRN ×2 (17:25→23:45)
[2017-02-28] MEDS: TAMSULOSIN HCL 0.4 MG CAPSULE PO SCH (20:16)
[2017-03-01 04:47] VITALS: BP 135/66
[2017-03-01] MEDS: INSULIN REGULAR, HUMAN 100 UNITS/ML SQ PRN ×2 (05:41→12:26)
[2017-03-01 07:10] VITALS: BP 145/68
[2017-03-01 07:10] LABS: BASOPHILS # (AUTO) 0.03 K/uL (0.00-0.20); BASOPHILS % (AUTO) 0.2 % (0.0-2.0); EOSINOPHILS # (AUTO) 0.06 K/uL (0.00-0.70); HEMATOCRIT 27.3 % (41-53); HEMOGLOBIN 8.9 g/dL (13.5-17.5); LYMPHOCYTES # (AUTO) 1.7 K/uL (1.0-4.8); LYMPHOCYTES % (AUTO) 13.6 % (22.0-44.0); MEAN CORPUSCULAR HEMOGLOBIN 29.7 pg (26.0-34.0); MEAN CORPUSCULAR HGB CONC 32.7 G/dL (31.0-37.0); MEAN CORPUSCULAR VOLUME 91 fL (80-100); MONOCYTES # (AUTO) 1.1 K/uL (0.1-1.0); MONOCYTES % (AUTO) 8.6 % (2.0-9.0); NEUTROPHILS # (AUTO) 9.5 K/uL (1.8-7.7); NEUTROPHILS % (AUTO) 77.1 % (40.0-70.0); PLATELET COUNT (AUTO) 315 K/uL (150-450); RED CELL DISTRIBUTION WIDTH 16.4 % (11.5-14.5); WHITE BLOOD COUNT (AUTO) 12.3 K/uL (4.5-11.0)
[2017-03-01 07:40] LABS: ALBUMIN 1.5 g/dL (3.4-5.0); BILIRUBIN,TOTAL 0.3 mg/dL (0.1-1.0); CALCIUM, TOTAL 8.8 mg/dL (8.8-10.5); CREATININE 2.42 mg/dL (0.60-1.30); MAGNESIUM 1.8 mg/dL (1.80-2.40); PHOSPHORUS 2.5 mg/dL (2.5-4.9); TOTAL PROTEIN, SERUM 6.8 g/dL (6.4-8.2)
[2017-03-01] MEDS ORDERED: POTASSIUM CHLORIDE 20 MEQ ER TABLET PO ONE (08:15)
[2017-03-01] MEDS: DOCUSATE SODIUM 100 MG CAPSULE GT SCH (08:31)
[2017-03-01] MEDS: PANTOPRAZOLE SODIUM 40 MG/VIAL IVP SCH (08:37)
[2017-03-01] MEDS: POTASSIUM CHL 10 MEQ/WATER 50 ML IV SCH ×2 (08:39→10:37)
[2017-03-01] MEDS: GABAPENTIN 300 MG CAPSULE GT SCH (08:40)
[2017-03-01] MEDS: ATENOLOL 25 MG TABLET GT SCH (08:40)
[2017-03-01] MEDS: LACTOBACILLUS ACIDOPHILUS/BULGARICUS TABLET GT SCH (08:41)
[2017-03-01] MEDS: FOLIC ACID 1 MG TABLET GT SCH (08:41)
[2017-03-01] MEDS: MUPIROCIN CALCIUM 2% 22 GM OINTMENT NASAL SCH (08:43)
[2017-03-01] MEDS: FERROUS SULFATE 300 MG/5 ML LIQUID UDCUP GT SCH (08:43)
[2017-03-01] MEDS: PYRIDOXINE HCL 50 MG TABLET GT SCH (08:43)
[2017-03-01] MEDS: TAMSULOSIN HCL 0.4 MG CAPSULE PO SCH (08:49)
[2017-03-01 11:07] VITALS: BP 140/63
[2017-03-01 11:38] LABS: GLUCOSE,POINT OF CARE 124 MG/DL (70-110)
[2017-03-01 11:38] LABS: GLUCOSE COMMENT 1 Received Meds; GLUCOSE,POINT OF CARE 174 MG/DL (70-110)
[2017-03-01 13:47] LABS: CALCIUM, TOTAL 8.6 mg/dL (8.8-10.5); CREATININE 2.24 mg/dL (0.60-1.30); POTASSIUM 3.4 mmol/L (3.5-5.1)
[2017-03-01 14:23] LABS: GLUCOSE COMMENT 1 Received Meds; GLUCOSE,POINT OF CARE 191 MG/DL (70-110)
[2017-03-01] MEDS: SOD FERRIC GLUC COMPLX/SUCROSE 125 MG in SODIUM CHLORIDE 0.9% 100 ML IV SCH (14:34)
[2017-03-01] MEDS ORDERED: POTASSIUM CHLORIDE 10 MEQ ER TABLET PO ONE (15:15)
[2017-03-01 16:07] VITALS: BP 126/48
[2017-03-01] MEDS: CefTRIAXone 1 GM/DEXTROSE 50 ML IV SCH (16:12)
[2017-03-01] MEDS ORDERED: MUPI1OIN4 NS (17:12)
[2017-03-01] MEDS ORDERED: TAMS0.4C32 PO (17:13)
[2017-03-01] MEDS ORDERED: KDUR20 GT (17:14)
[2017-03-03 21:48] LABS: GLUCOSE,POINT OF CARE 75 MG/DL (70-110)
[2017-03-03 21:52] LABS: GLUCOSE COMMENT 1 Received Meds; GLUCOSE,POINT OF CARE 69 MG/DL (70-110)
[2017-03-03 21:52] LABS: GLUCOSE,POINT OF CARE 157 MG/DL (70-110)
[2017-03-03 22:12] LABS: GLUCOSE,POINT OF CARE 101 MG/DL (70-110)
[2017-03-03 22:17] LABS: GLUCOSE,POINT OF CARE 130 MG/DL (70-110)
[2017-03-03 22:18] LABS: GLUCOSE COMMENT 1 Received Meds; GLUCOSE,POINT OF CARE 139 MG/DL (70-110)
[2017-03-03 22:18] LABS: GLUCOSE,POINT OF CARE 125 MG/DL (70-110)
[2017-03-03 22:18] LABS: GLUCOSE COMMENT 1 Received Meds; GLUCOSE,POINT OF CARE 243 MG/DL (70-110)
[2017-03-03 22:18] LABS: GLUCOSE COMMENT 1 Received Meds; GLUCOSE,POINT OF CARE 222 MG/DL (70-110)
== END 2017-03-01 17:45 | DRG 871 ==
LOC: EMS 13:25 → 5S 17:48
PROVIDERS: ADMIT Hospitalist; ATTEND Hospitalist
PROC: 30233N1 Transfusion of Nonautologous Red Blood Cells into Peripheral Vein, Percutaneous Approach (ICD-10-PCS; 2017-02-26)
PROC: 0DJ08ZZ Inspection of Upper Intestinal Tract, Via Natural or Artificial Opening Endoscopic (ICD-10-PCS; principal; 2017-02-26 14:30)
DX: A41.89 Other specified sepsis (principal); E43 Unspecified severe protein-calorie malnutrition; J18.9 Pneumonia, unspecified organism; L89.154 Pressure ulcer of sacral region, stage 4; K92.2 Gastrointestinal hemorrhage, unspecified; N17.9 Acute kidney failure, unspecified; I13.0 Hypertensive heart and chronic kidney disease with heart failure and stage 1 through stage 4 chronic kidney disease, or unspecified chronic kidney disease; N39.0 Urinary tract infection, site not specified; Z66 Do not resuscitate; E87.5 Hyperkalemia; E86.0 Dehydration; E87.6 Hypokalemia; I25.10 Atherosclerotic heart disease of native coronary artery without angina pectoris; F03.90 Unspecified dementia, unspecified severity, without behavioral disturbance, psychotic disturbance, mood disturbance, and anxiety; E11.40 Type 2 diabetes mellitus with diabetic neuropathy, unspecified; D64.9 Anemia, unspecified; B96.4 Proteus (mirabilis) (morganii) as the cause of diseases classified elsewhere; I50.9 Heart failure, unspecified; N18.9 Chronic kidney disease, unspecified; E11.22 Type 2 diabetes mellitus with diabetic chronic kidney disease; R33.9 Retention of urine, unspecified; E78.5 Hyperlipidemia, unspecified; R31.9 Hematuria, unspecified; Z86.73 Personal history of transient ischemic attack (TIA), and cerebral infarction without residual deficits; Z88.0 Allergy status to penicillin; Z22.322 Carrier or suspected carrier of Methicillin resistant Staphylococcus aureus; Z89.411 Acquired absence of right great toe; Z68.24 Body mass index [BMI] 24.0-24.9, adult; Z79.899 Other long term (current) drug therapy; Z95.1 Presence of aortocoronary bypass graft; Z93.1 Gastrostomy status; Z79.84 Long term (current) use of oral hypoglycemic drugs
CPT/HCPCS: 51702; 74000; 74176; 76770; 82271; 82570; 82962; 83540; 83550; 83605; 83735; 84100; 84300; 84540; 86850; 86900; 86901; 86920; 87040; 87081; 87086; 93005; 94640; 94799; 96361; 96365; 96366; 96368; 96375; 99291; C9113; J0456; J0610; J0696; J0885; J1815; J2704; J2916; J3480; J7030; J7040; J7050; P9016